=== PATIENT | male | born 1995 | race Caucasian/White ===

== ENCOUNTER 2024-12-08 08:05 | Outpatient (CLI) | payer OTHER, SELFPAY ==
--- OUTSIDE RECORDS SUMMARY | 2024-12-08 08:15 | XMS_ITS | Referral Summary ---
Author Organization [facility] Address [address] [place] [address] Care Team Providers Care Lock Up Worker Name Role Phone Unavailable Primary Care Provider Unavailabl e Social History Tobacco Use Types Packs/Day Years Used Date Smoking Tobacco: Never Assessed Inadequate Housing Answer Date Recorded Social Determinants: Housing (Overall Score Help er) 0 10/15/2023 Sex and Gender Information Value Date Recorded Sex Assigned at Not on file Gender Identity Not on file Sexual Orientation Not on file Plan of Treatment Not on file
--- OUTSIDE RECORDS SUMMARY | 2024-12-08 08:15 | XMS_ITS | Clinical Summary ---
Author Organization [facility] Address [address] [place] [address] Care Team Providers Care Director Of Community Life Name Role Phone Unavailable Primary Care Provider Unavailabl e Social History Tobacco Use Types Packs/Day Years Used Date Smoking Tobacco: Never Assessed Inadequate Housing Answer Date Recorded Social Determinants: Housing (Overall Score Help er) 0 10/15/2023 Sex and Gender Information Value Date Recorded Sex Assigned at Not on file Gender Identity Not on file Sexual Orientation Not on file Plan of Treatment Health Maintenance Due Date Last Done Comments Depression Screening 2007 Varicella Vaccine (1 of 2 - 13+ 2-dose series) 2008 DTaP/Tdap/Td Vaccine (1 - Tdap) 2014 Hepatitis B Vaccine (1 of 3 - 19+ 3-dose series) 2014 Cervical Cancer Screening 2016 Pap Smear 2016 COVID-19 Vaccine (2023-2 5 season) 2024 Influenza Vaccine (#1) 2024 HPV Vaccine Aged Out No longer eligi ble based on patient's age to complete this topic Meningococcal Vaccine Aged Out No fahad kristina eligible based on patient's age to complete this topic Pneumococcal Vaccine 0-49 Aged Out No longer eligible based on patient's age to complete this topic
--- OUTSIDE RECORDS SUMMARY | 2024-12-08 08:15 | XMS_ITS ---
Author Organization [facility] Address [address] [place] [address] Care Team Providers Care Editor Index Name Role Phone Violeta Quiroz Primary Care Provider [phone] Reynaldo Gomez [phone] REASON FOR VISIT New Refill Request Medications Medication SIG (Take, Route, Frequency, Duration) Notes Start Date End Date Status Testosterone Cypionate 200 MG/ML 0.4 ml Intramuscular once every week for 90 days 06/08/2023 Active FLUoxetine HCl 40 MG TAKE 1 CAPSULE BY M OUTH EVERY DAY FOR 90 DAYS for 90 days Active Social History Sex Assigned At : Social History Observation Description Sex Assigned At Female Encounters Encounter Location Date Provider Diagnosis [address] [address] 06/07/2023 Reynaldo Gomez Gender dysphoria F64.9 Assessments Encounter Date Diagnosis (ICD Code) Assessment Notes Treatment Notes Treatment Clinical Notes Section Notes 06/07/2023 Gender dysphoria (ICD-10 - F64.9) Plan Of Treatment Medication Medication Name Sig Start Date Stop Date Notes Testosterone Cypionate 200 MG/ML 0.4 ml Intramuscular once every week for 90 days 06/08/2023 FLUoxetine HCl 40 MG TAKE 1 CAPSULE BY M OUTH EVERY DAY FOR 90 DAYS for 90 days Progress Notes * Doron FAUSTINDOB:[birth year] (27 yo M)Acc No.[id number]:06/07/2023 Patient:?Doron Faustin :1995???Age:27 Y???Sex:Male Address:[address] [place] [phone] * Refills? Refill FLUoxetine HCl Capsule, 40 MG, 90 Capsule, TAKE 1 CAPSULE BY MOUTH EVERY DAY FOR 90 DAYS, 90 days, Refills=0 Refill Testosterone Cypionate Solution, 200 MG/ML, Intramuscular, 6 ml, 0.4 ml, once every week, 90 days, Refills=0 * true * Date:? Generated for Reina momin/Adryan/Sharmilasmitting on:?12/08/2024 08:15 AM AGRICULTURAL COMMODITIES INSPECTOR
--- OUTSIDE RECORDS SUMMARY | 2024-12-08 08:15 | XMS_ITS | Referral Summary ---
Author Organization [facility] Address [address] [place] [address] Care Team Providers Care Mason Foreman/Superintendant Name Role Phone RichieVioleta ANGELICA Primary Care Provider [phone] Allergies Active Allergy Reactions Criticality Noted Date Comments Escitalopram Rash Medium 01/01/2017 Medications needle, disp, 25 gauge (BD REGULAR BEVEL NEEDLES) 25 gauge x 5/8 needle Use to inject testosterone subcutaneously once weekly 4 each 5 9 Active needle, disp, 18 G (BD REGULAR BEVEL NEEDLES) 18 gauge x 1 1/2 needle Use to draw up testosterone injections once weekly 4 each 5 9 Active syringe, disposable, (BD LUER-STACY SYRINGE) 1 mL syringe Use for weekly testosterone injections 4 Syringe 5 9 Active FLUoxetine (PROzac) 40 mg capsule Take 1 capsule (40 mg total) by mouth daily 30 capsule 6 9 Active testosterone cypionate (DEPO-TESTOTER ONE) 200 mg/mL injection INJECT 0.4ML INTO MUSCLE ONCE EVERY WEEK 2 mL 2 0 Active methylPREDNISo lone (MEDROL DOSEPACK) 4 mg Dosepack TAKE 6 TABLETS ON DAY 1 DIRECTED ON PACKAGE AND DECREASE BY 1 TAB EACH DAY FOR A TOTAL OF 6 DAYS 3 Active azithromycin (ZITHROMAX) 250 mg tablet TAKE 2 TABLETS BY MOUTH TODAY, THEN TAKE 1 TABLET DAILY FOR 4 DAYS 3 Active Active Problems Problem Noted Date Diagnosed Date Iuhhou-ce-aobq transgender person 05/13/2019 Class 2 obesity due to exces s calories without serious comorbidity with body mass index (BMI) of 39.0 to 39.9 in adult 05/13/2019 Dyslipidemia 05/13/2019 Vitamin D deficiency 05/13/2019 Social History Tobacco Use Types Packs/Day Years Used Date Smoking Tobacco: Never Smokeless Tobacco: Current Comments:vaping AUDIT-C Answer Date Recorded Frequency of Alcohol Consumption Not on file 11/24/2022 Q2: How many drinks containi ng alcohol do you have on a typical day when you are drinking? Patient does not drink Frequency of Binge Drinking Not on file 11/12 Comments Unknown Sex and Gender Information Value Date Recorded Sex Assigned at Female 05/14/2019 8:58 AM CDT Legal Sex Female 1:28 PM CDT Gender Identity Transgender Male 05/14/2019 8:58 AM CDT Sexual Orientation Not on file Last Filed Vital Signs Vital Sign Reading Time Taken Comments Blood Pressure 122/80 11/24/2022 3:16 PM PHLEBOTOMY TECHNOLOGIST Pulse 90 09/23/2019 1:01 PM PHLEBOTOMY TECHNOLOGIST Temperature 37.1 ??C (98.7 ??F) 09/23/2019 1:01 PM CS T Respiratory Rate 23 09/23/2019 1:01 PM PHLEBOTOMY TECHNOLOGIST Oxygen Saturation - - Inhaled Oxygen Concentration - - Weight 128 kg (282 lb 3.2 oz) 11/24/2022 3:16 PM PHLEBOTOMY TECHNOLOGIST Height 172.7 cm (5' 8 ) 11/24/2022 3:16 PM PHLEBOTOMY TECHNOLOGIST Body Mass Index 42.91 11/24/2022 3:16 PM PHLEBOTOMY TECHNOLOGIST Plan of Treatment Not on file Procedures Procedure Name Priority Date/Time Associated Diagnosis Comments THINPREP IMAGING PAP REFLEX HPV MRNA E6/E7 Routine 11/24/2022 4:45 PM PHLEBOTOMY TECHNOLOGIST from Last 3 Months or Most Recently Relevant to Health Maintenance Results * ThinPrep Imaging Pap Reflex HPV mRNA E6/E7 (11/24/2022 4:45 PM PHLEBOTOMY TECHNOLOGIST) CLINICAL INFORMATION: Routine exam TRANSMAN ON [employer] LMP NONE [facility] [employer] Previous Pap NONE GIVEN [facility] Prev. Bx NONE GIVEN [facility] SOURCE: Cervix, Endocervix [facility] Pap, specimen adequacy Satisfactory for evaluation. Endocervical/borges sformation zone component present. [employer] HPV interp Negative for intraepithelial lesion or malignancy. [facility] COMMENTS This Pap test has been evaluated with computer assisted technology. [facility] Mechanical Maintenance Technician TLS, CT(ASCP) CT Screening Location: [address] [address] [facility] Review business area manager TONEY, CT(ASCP) CT screening location: [place] [address] [address] [place] [id number] [place] [address] Comment [facility] Comment: EXPLANATORY NOTE: The Pap is a screening test for cervical cancer. It is not a diagnostic test and is subject to false negative and false positive results. It is most reliable when a satisfactory sample, regularly obtained, is submitted with relevant clinical findings and history, and when the Pap result is evaluated along with historic and current clinical information. 11/24/2022 4:45 PM PHLEBOTOMY TECHNOLOGIST 11/25/2022 1:25 AM PHLEBOTOMY TECHNOLOGIST Narrative [facility] - 11/28/2022 11:37 AM PHLEBOTOMY TECHNOLOGIST FASTING: UNKNOWN us Neelima Rodriguez MD LAB PATHOLOGY ORDERABLES Final Result [place] [address] [place] [address] from Last 3 Months or Most Recently Relevant to Health Maintenance Insurance [employer] O[employer] Member Subscriber Plan / Payer (Ef fective 2021-Present) Name:Doron Faustin Relation to Subscriber:Self Name:Doron Faustin Payer ID:[id number] (NAIC) Type:ADORE DENNIS Address: [facility] [address] [place] [id number] ANTHEM ACCESS ANTHEM ACCESS Advance Directives For more information, please contact: [phone] Documents on File Type Date Recorded Patient Plant Attendant Expl anation ADVANCE DIRECTIVE 05/13/2019 3:22 PM ADVANCE DIRECTIVE 10/02/2017 Advance Di rective Checklist Care Teams Mason Foreman/Superintendant Relationship Specialty Start Date End Date Violeta Quiroz NP [address] [place] [address] PCP - General Nurse Practitioner 08/29/22
--- OUTSIDE RECORDS SUMMARY | 2024-12-08 08:16 | XMS_ITS | Clinical Summary ---
Author Organization [facility] Address [address] [place] [address] Care Team Providers Care Computer Network And Systems Engineer Name Role Phone Unknown, Provider Primary Care Provider Unavaila ble Source Comments [facility],non-owned Affiliates and Associated Physician Practices is amultiple site organization consisting of ambulatory clinics and hospital sitesin [place], [place], [place] and [place]. This disclosure is being madepursuant to the Care Everywhere program and may not contain all information available regarding this patient. Last updated 18.[facility] Allergies Active Allergy Reactions Criticality Noted Date Comments Escitalopram Rash Medium 01/01/2017 Escitalopram Urticaria Medium 08/06/2018 Medications Be aware that medications may not be up to date on this document. Always verify current medications with the patient. No known medications Active Problems Problem Noted Date Diagnosed Date Gender identity disorder 12/06/2017 Overview (08/12/2022): IMO 2021 Update Family History Medical History Relation Name Comments Diabetes - Type 2 Maternal Grandfather Hypertension Mother Asthma Neg Hx Autoimmune Disease Neg Hx Bipolar Disorder Neg Hx Cancer - Breast Neg Hx Cancer - Colon Neg Hx Cancer - Other Neg Hx Cancer - Ovarian Neg Hx Cancer - Pancreatic Neg Hx Cancer - Prostate Neg Hx Depression Neg Hx Eczema Neg Hx Migraine Neg Hx Osteoporosis Neg Hx Seizures Neg Hx Sudd. <30 Neg Hx Thyroid Disease Neg Hx Ulcerative Colitis Neg Hx Relation Name Status Comments Father Alive Maternal Grandfather Alive Mother Alive Social History Tobacco Use Types Packs/Day Years Used Date Smoking Tobacco: Never Smokeless Tobacco: Never Tobacco Cessation:Counseling Given: No Alcohol Use Standard Drinks/Week Comments No 0 (1 standard drink = 0.6 oz pur e alcohol) Sex and Gender Information Value Date Recorded Sex Assigned at Not on file Gender Identity Gender Non-conforming 08/07/2018 8:01 AM CDT Sexual Orientation Not on file Last Filed Vital Signs Vital Sign Reading Time Taken Comments Blood Pressure 122/78 06/01/2020 12:33 PM CDT Pulse 96 06/01/2020 12:33 PM CDT Temperature 37.1 ??C (98.7 ??F) 06/01/2020 12:33 PM C DT Respiratory Rate 17 06/01/2020 12:33 PM CDT Oxygen Saturation 98% 06/01/2020 12:33 PM CDT Inhaled Oxygen Concentration - - Weight 127 kg (280 lb) 06/01/2020 12:33 PM CDT Height 172.7 cm (5' 8 ) 06/01/2020 12:33 PM CDT Body Mass Index 42.57 06/01/2020 12:33 PM CDT Plan of Treatment Health Maintenance Due Date Last Done Comments HIV SCREENING 2010 HEPATITIS C SCREENING 12/19/2013 DTAP/TDAP/TD VACCINES (1 - Tdap) 2014 HEPATITIS B VACCINE (1 of 3 - 19+ 3-dose series) 2014 COVID-19 VACCINE ( - 2023-2 5 season) 2024 INFLUENZA VACCINE (#1) 2024 DEPRESSION SCREENING 11/12/2024 ZOSTER VACCINE (1 of 2) 2045 HIB VACCINE Aged Out No longer eligi ble based on patient's age to complete this topic HPV VACCINE Aged Out No longer eligi ble based on patient's age to complete this topic MENINGOCOCCAL (Group B) VACCINE Aged Out No longer eligible based on patient's age to complete this topic MENINGOCOCCAL VACCINE Aged Out No fahad kristina eligible based on patient's age to complete this topic PNEUMOCOCCAL VACCINE Aged Out No long er eligible based on patient's age to complete this topic Care Teams Computer Network And Systems Engineer Relationship Specialty Start Date End Date Unknown, Provider PCP - General 12/22/16
--- OUTSIDE RECORDS SUMMARY | 2024-12-08 08:16 | XMS_ITS ---
Author Organization [facility] Address [address] [place] [address] Care Team Providers Care Curriculum Development Manager Name Role Phone Violeta Quiroz Primary Care Provider [phone] PrelutskReynaldo martínez [phone] Social History Sex Assigned At : Social History Observation Description Sex Assigned At Female Encounters Encounter Location Date Provider Diagnosis [address] [address] 06/08/2023 Violeta Quiroz Plan Of Treatment No Information Progress Notes * Doron FAUSTINDOB:[birth year] (27 yo M)Acc No.[id number]:06/08/2023 Patient:?Doron Faustin :1995???Age:27 Y???Sex:Male Address:[address] [place] [address] * true * Date:? Generated for Keveni liliane/Adryan/eTransmitting on:?12/08/2024 08:16 AM METAL BENCH PATTERNMAKER
--- OUTSIDE RECORDS SUMMARY | 2024-12-08 08:16 | XMS_ITS | Patient Health Summary ---
Author Organization [facility] Address [address] [place] [address] Care Team Providers Care Stacker Operator Name Role Phone Unknown, Provider Primary Care Provider Unavaila ble Note from [facility],non-owned Affiliates and Associated Physician Practices is amultiple site organization consisting of ambulatory clinics and hospital sitesin [place], [place], [place] and [place]. This disclosure is being madepursuant to the Care Everywhere program and may not contain all information available regarding this patient. Last updated 18.[facility] Allergies * Escitalopram(Rash) -Medium Criticality * Escitalopram(Urticaria) -Medium Criticality Medications Be aware that medications may not be up to date on this document. Always verify current medications with the patient. No known medications Active Problems Problem Noted Date Diagnosed Date Gender identity disorder 12/06/2017 Social History Tobacco Use Types Packs/Day Years [...] Mass Index 42.57 06/01/2020 12:33 PM CDT Procedures * STREP A SCREEN - POINT OF CARE (AMB) STL(Performed 12/01/2017) Performed for Nasopharyngitis * STREP A SCREEN - POINT OF CARE (AMB) STL(Performed 12/22/2016) Performed for Acute pharyngitis, unspecified etiology, Lymphadenitis, acute Results * STREP A SCREEN (12/01/2017) Only the most recent of2 resultswithin the time period is included. Strep A Rapid POCT Negative Negative Strep A Internal Control Present Lot # [id number] Expiration Date [id number] Throat ENTIRE THROAT (SURFACE REGION OF NECK) / Unknown 12/01/2017 Joan Vega CEMENT MIXER-CUSTOMER SUPPORT ASSISTANT LAB - POINT O F CARE ORDERABLES Care Teams Stacker Operator Relationship Specialty Start Date End Date Unknown, Provider PCP - General 12/22/16
--- OUTSIDE RECORDS SUMMARY | 2024-12-08 08:16 | XMS_ITS ---
Author Organization [facility] Address [address] [place] [address] Care Team Providers Care Ordnance Artificer Helper Name Role Phone Violeta Quiroz Primary Care Provider [phone] PrelutskReynaldo martínez [phone] Social History Sex Assigned At : Social History Observation Description Sex Assigned At Female Encounters Encounter Location Date Provider Diagnosis [address] [address] 07/04/2023 Violeta Quiroz Plan Of Treatment No Information Progress Notes * Doron FAUSTINDOB:[birth year] (28 yo M)Acc No.[id number]:07/04/2023 Progress Notes Patient:?Doron FAUSTIN Provider:?Violeta Quiroz NP :1995???Age:27 Y???Sex:Male Abdulaziz e:07/04/2023 Address:[address] [place], [place] [id number] Subjective: * Chief Complaints: * ??? * Medical History:? * Implants:? Objective: * Vitals:? Assessment: Plan: * Treatment: * Procedure Codes:?D9987 No Ca ll No Show * Billing Information: * Visit Code:? * Procedure Codes:? D9987 No Call No Show. Care Plan Details* * Electronic signature of SARAH Arellano on 12/08/2024 at 08:16 AM HAND TOOL LAPPER Sign off status: Pending * Provider:?Violeta Quiroz NP Date:?07/04/20 Generated for Reina momin/Adryan/Mirtha on:?12/08/2024 08:16 AM HAND TOOL LAPPER
--- OUTSIDE RECORDS SUMMARY | 2024-12-08 08:16 | XMS_ITS | Clinical Summary ---
Author Organization [facility] Address [address] [place] [address] Care Team Providers Care Finisher Brush Name Role Phone RichieVioleta ANGELICA Primary Care Provider [phone] Allergies Active Allergy Reactions Criticality Noted Date [...] Active Problems Problem Noted Date Diagnosed Date Mbezoj-fu-mxiz transgender person 05/13/2019 Class 2 obesity due to exces s calories without serious comorbidity with body mass index (BMI) of 39.0 to 39.9 in adult 05/13/2019 Dyslipidemia 05/13/2019 Vitamin D deficiency 05/13/2019 Surgical History Surgery Date Site/Laterality Comments MASTECTOMY Medical History Medical History Date Comments Gender dysphoria Social History Tobacco Use Types Packs/Day Years [...] AM CDT Sexual Orientation Not on file Obstetrics History Para Term AB IAB SAB Ectopic Multiple Livin g Live Births 0 0 0 0 0 0 0 0 0 0 0 Last Filed Vital Signs Vital Sign Reading Time Taken Comments Blood Pressure 122/80 11/24/2022 3:16 PM THERAPEUTIC ASSISTANT Pulse 90 09/23/2019 1:01 PM THERAPEUTIC ASSISTANT Temperature 37.1 ??C (98.7 ??F) 09/23/2019 1:01 PM CS T Respiratory Rate 23 09/23/2019 1:01 PM THERAPEUTIC ASSISTANT Oxygen Saturation - - Inhaled Oxygen Concentration - - Weight 128 kg (282 lb 3.2 oz) 11/24/2022 3:16 PM THERAPEUTIC ASSISTANT Height 172.7 cm (5' 8 ) 11/24/2022 3:16 PM THERAPEUTIC ASSISTANT Body Mass Index 42.91 11/24/2022 3:16 PM THERAPEUTIC ASSISTANT Plan of Treatment Health Maintenance Due Date Last Done Comments Depression Screening 1995 Hepatitis C Screening 1995 DTaP/Tdap/Td Vaccine (1 - Tdap) 2006 Varicella Vaccines (1 of 2 - 13+ 2-dose series) 2008 Hepatitis B Screening 2013 Regular Well Visit/Exam 18-64 2013 Cervical Cancer Screening 11/24/2023 11/24/2022 Covid-19 Vaccine (2 - 2023-2 5 season) 2024 08/28/2022 Influenza Vaccine (#1) 2024 2, 08/23/2020 HPV Vaccines Aged Out No longer eligi ble based on patient's age to complete this topic Pneumococcal vaccine <65 Aged Out No longer eligible based on patient's age to complete this topic Procedures Procedure Name Priority Date/Time Associated Diagnosis Comments THINPREP IMAGING PAP REFLEX HPV MRNA E6/E7 Routine 11/24/2022 4:45 PM THERAPEUTIC ASSISTANT from Last 3 Months or Most Recently Relevant to Health Maintenance Results * ThinPrep Imaging Pap Reflex HPV mRNA E6/E7 (11/24/2022 4:45 PM THERAPEUTIC ASSISTANT) CLINICAL INFORMATION: Routine exam TRANSMAN ON [facility] LMP NONE [facility] Previous Pap NONE GIVEN [facility] Prev. Bx NONE GIVEN [facility] SOURCE: Cervix, Endocervix [facility] Pap, specimen adequacy Satisfactory for evaluation. Endocervical/borges sformation zone component present. [facility] HPV interp Negative for intraepithelial lesion or malignancy. [facility] COMMENTS This Pap test has been evaluated with computer assisted technology. [facility] Cloth Spreader TLS, CT(ASCP) CT Screening Location: [address] Review stone carver TONEY, CT(ASCP) CT screening location: [address] [place] [address] Comment [facility] Comment: EXPLANATORY NOTE: The Pap is [...] and current clinical information. 11/24/2022 4:45 PM THERAPEUTIC ASSISTANT 11/25/2022 1:25 AM THERAPEUTIC ASSISTANT Narrative [facility] 11/28/2022 11:37 AM THERAPEUTIC ASSISTANT FASTING: UNKNOWN Neelima Rodriguez MD LAB PATHOLOGY ORDERABLES Final Result [place] [address] [place] [address] from Last 3 Months or Most Recently Relevant to Health Maintenance Insurance BLUE ACCESS OOS ANTHEM ACCESS ANTHEM ACCESS Advance Directives For more information, please contact: [phone] Documents on File Type Date Recorded Patient Operator Cavity Pump Expl anation ADVANCE DIRECTIVE 05/13/2019 3:22 PM ADVANCE DIRECTIVE 10/02/2017 Advance Di rective Checklist Care Teams Finisher Brush Relationship Specialty Start Date End Date Violeta Quiroz NP [address] [place] [address] PCP - General Nurse Practitioner 08/29/22
--- OUTSIDE RECORDS SUMMARY | 2024-12-08 08:16 | XMS_ITS | Patient Health Record ---
[facility] Address [address] [place] [id number] Care Team Providers Care Back Roller Name Role Phone MagueVioleta hoover Primary Care Provider PrelutskReynaldo martínez [phone] Allergies Allergen (clinical drug ingredient) Drug/Non Drug Allergy documented on EMR Reaction Allergy Type Onset Date Status escitalopram Escitalopram Oxalate hives Drug Allergy Active Reason For Referral No Information Medications Medication SIG (Take, Route, Frequency, Duration) Notes Start Date End Date Status Needle (Disp) 18G X 1 to draw up injectable medication as directed as directed for 90 days 11/22/2020 Active FLUoxetine HCl 40 MG TAKE 1 CAPSULE BY MOUTH EVERY DAY FOR 90 DAYS for 90 days Ok for one fill of this medication but please let patient know he is overdue for an office visit with us Active Testosterone Cypionate 200 MG/ML 0.4 ml Intramuscular once every week for 90 days 06/08/2023 Active Syringe 23G X 1 3 ml to inject testosterone Injected every week for 90 days 11/22/2020 Active BD Insulin Syringe Ultrafine 29G X 1/2 1 ML as directed Injected once weekly for 90 days 01/04/2022 Active Immunizations Vaccine Route Administration Date Status Comme nts Flulaval IM Intramuscular 08/23/2020 Administered Social History Tobacco Use: Social History Observation Description Date Details (start date - stop date) Former Smoker NA - NA Sex Assigned At : Social History Observation Description Sex Assigned At Female Tobacco Use/Smoking Question Answer Notes Smoking Status: former smoker How long has it been since you last smoked? 1-5 years Alcohol Screen (Audit-C) Question Answer Notes Did you have a drink contain ing alcohol in the past year? Yes How often did you have 6 or more drinks on one occasion in the past year? Less than monthly (1 point) How many drinks did you have on a typical day when you were drinking in the past year? 3 or 4 drinks (1 point) How often did you have a dri nk containing alcohol in the past year? Monthly or less (1 point) Tobacco use other than smoking: Question Answer Notes Are you an other tobacco user? No Problems Problem Type SNOMED Code ICD Code Onset Dates Problem Status W/U Status Risk Notes Problem Generalized anxiety disorder (29767249) Generalized anxiety disorder (F41.1) Active confirmed Problem Gender dysphoria (03609558) Gender dysphoria (F64.9) Active confirmed Problem Depression (167639780) Depression (F32.9) Active confirmed Plan Of Treatment No Information Insurance Providers Payer Name Payer Address Payer Phone Subscriber Number Group Number Insured Name Patient Relationship to Insured Coverage Start Date Coverage End Date [facility] [address] [place] [address] [id number] Doron Gimenez Self - patient is the insured Medical (General) History Medical History History ICD Code Colonoscopy: No DEXA (Bone Density) Scan: No Mammogram: No Pap: This year AIDS/HIV: No alcohol abuse: No acid reflux: No allergies, food: No allergies, seasonal: Yes anemia: No arthritis: No asthma: No attention deficit disorder: No anxiety: Yes bipolar disorder: No bladder infections, chronic: No : No chronic diarrhea: No cough, chronic: No dementia: No depression: Yes deep vein thrombosis: No diabetes mellitus: No drug abuse: No eating disorder: No gout: No insomnia: No inflammatory bowel disease: No myocardial infarction: No neuropathy: No panic attacks: No osteoporosis: No pulmonary embolism: No rheumatoid arthritis: No seizures: No sleep apnea: No stroke: No white coat hypertension: No Surgical History Surgery Date(Month/Year) bilateral mastectomy 2017
--- OUTSIDE RECORDS SUMMARY | 2024-12-08 08:16 | XMS_ITS | Referral Summary ---
Author Organization [facility] Address [address] [place] [address] Care Team Providers Care Hydrotechnical Specialist Name Role Phone Unknown, Provider Primary Care Provider Unavaila ble Source Comments [facility],non-owned Affiliates and Associated Physician Practices is amultiple site organization consisting of ambulatory clinics and hospital sitesin [place], [place], [place] and [place]. This disclosure is being madepursuant to the Care Everywhere program and may not contain all information available regarding this patient. Last updated 18.[facility] [employer] Allergies Active Allergy Reactions Criticality Noted Date Comments Escitalopram Rash Medium 01/01/2017 Escitalopram Urticaria Medium 08/06/2018 Medications Be aware that medications may not be up to date on this document. Always verify current medications with the patient. No known medications Active Problems Problem Noted Date Diagnosed Date Gender identity disorder 12/06/2017 Overview (08/12/2022): IMO 2021 Update Social History Tobacco Use Types Packs/Day Years [...] 06/01/2020 12:33 PM CDT Plan of Treatment Not on file Care Teams Hydrotechnical Specialist Relationship Specialty Start Date End Date Unknown, Provider PCP - General 12/22/16
[2024-12-08 16:28] LABS: Basophils Absolute Auto 0.1 K/mm3 (0.0-0.1); Basophils Percent Auto 0.6 % (0.2-1.2); Eosinophils Absolute Auto 0.1 K/mm3 (0-0.3); Eosinophils Percent Auto 1.1 % (0-4.4); Hemoglobin 14.3 g/dL (14.0-18.0); Immature Granulocyte Absolute 0.04 K/mm3 (0.00-0.031); Immature Granulocyte Percent A 0.4 % (0-0.5); Lymphocytes Absolute Auto 3.46 K/mm3 (0.9-3.2); Lymphocytes Percent Auto 35.4 % (18.3-44.2); Mean Corpuscular HGB Conc 30.4 g/dl (32-36); Mean Corpuscular Hemoglobin 25.2 pg (26-34); Mean Corpuscular Volume 82.9 fl (80-100); Mean Platelet Volume 8.7 fl (7.4-10.4); Monocytes Absolute Auto 0.5 K/mm3 (0.1-0.6); Monocytes Percent Auto 5.5 % (2.6-8.5); Neutrophils Absolute Auto 5.6 K/mm3 (1.3-6.7); Platelet Count Result 383 k/mm3 (150-375); Red Blood Count 5.67 M/mm3 (4.6-6.20); Red Cell Distribution Width 14.1 % (11.5-14.5); White Blood Count 9.8 K/mm3 (4.5-10.0)
[2024-12-08 17:13] LABS: Hemoglobin A1C 5.8 % (<5.7)
[2024-12-08 18:14] LABS: Free T4 Free Thyroxine 0.99 ng/dL (0.78-2.19)
[2024-12-08 18:32] LABS: Vitamin D 25 Hydroxy < 12.8 ng/mL
[2024-12-13 23:19] LABS: Testosterone Free 85.1 pg/mL (35.0-155.0); Testosterone Total 452 ng/dL (250-1100)
== END 2024-12-08 08:06 | disposition home or self-care (01) ==
LOC: ANHGOSHLAB 08:07
PROVIDERS: PCP Family Medicine; Visit Provider Family Medicine
DX: R73.9 Hyperglycemia, unspecified (principal); R53.83 Other fatigue; E55.9 Vitamin D deficiency, unspecified; Z78.9 Other specified health status
CPT/HCPCS: 36415; 82306; 83036; 84402; 84403; 84439; 84443; 85025

== ENCOUNTER 2025-01-22 07:58 | Outpatient (CLI) | payer OTHER, SELFPAY ==
--- OUTSIDE RECORDS SUMMARY | 2025-01-22 08:06 | XMS_ITS | Referral Summary ---
Author Organization [facility] Address [address] [place] [phone] Care Team Providers Care Executive Compensation Analyst Name Role Phone RichieVioleta ANGELICA Primary Care Provider [phone] Allergies Active Allergy Reactions Criticality Noted Date [...] Active Problems Problem Noted Date Diagnosed Date Nsbucb-eb-vzix transgender person 05/13/2019 Class 2 obesity due [...] Comments Blood Pressure 122/80 11/24/2022 3:16 PM HISTORICAL INTERPRETER Pulse 90 09/23/2019 1:01 PM HISTORICAL INTERPRETER Temperature 37.1 C (98.7 F) 09/23/2019 1:01 PM HISTORICAL INTERPRETER Respiratory Rate 23 09/23/2019 1:01 PM HISTORICAL INTERPRETER Oxygen Saturation - - Inhaled Oxygen Concentration - - Weight 128 kg (282 lb 3.2 oz) 11/24/2022 3:16 PM HISTORICAL INTERPRETER Height 172.7 cm (5' 8 ) 11/24/2022 3:16 PM HISTORICAL INTERPRETER Body Mass Index 42.91 11/24/2022 3:16 PM HISTORICAL INTERPRETER Plan of Treatment Not on file Procedures Procedure Name Priority Date/Time Associated Diagnosis Comments THINPREP IMAGING PAP REFLEX HPV MRNA E6/E7 Routine 11/24/2022 4:45 PM HISTORICAL INTERPRETER from Last 3 Months or Most Recently Relevant to Health Maintenance Results * ThinPrep Imaging Pap Reflex HPV mRNA E6/E7 (11/24/2022 4:45 PM HISTORICAL INTERPRETER) CLINICAL INFORMATION: Routine exam TRANSMAN ON [facility] LMP NONE [facility] Prev. Bx NONE GIVEN [facility] SOURCE: Cervix, Endocervix [facility] Pap, specimen adequacy Satisfactory for evaluation. Endocervical/borges sformation zone component present. [facility] HPV interp Negative for intraepithelial lesion or malignancy. [facility] COMMENTS This Pap test has been evaluated with computer assisted technology. [facility] Ceramics Technician TLS, CT(ASCP) CT Screening Location: [place] [address] [address] [facility] [address] [facility] Review stone polisher hand TONEY, CT(ASCP) CT screening location: [place] [address] Comment [facility] Comment: EXPLANATORY NOTE: The Pap is [...] and current clinical information. 11/24/2022 4:45 PM HISTORICAL INTERPRETER 11/25/2022 1:25 AM HISTORICAL INTERPRETER Narrative [facility] - 11/28/2022 11:37 AM HISTORICAL INTERPRETER FASTING: UNKNOWN us Neelima Rodriguez MD LAB PATHOLOGY ORDERABLES Final Result [place] [address] [place] [address] from Last 3 Months or Most Recently Relevant to Health Maintenance Insurance [employer] OOS Member Subscriber Plan / Payer (Ef fective 2021-Present) Name:Doron Faustin Relation to Subscriber:Self Name:Doron Faustin Payer ID:[id number] (NAIC) Type:ADORE DENNIS Address: [facility] [id number] [place] [id number] ANTHEM ACCESS ANTHEM ACCESS Advance Directives For more information, please contact: [phone] Documents on File Type Date Recorded Patient Deputy Commissioner Expl anation ADVANCE DIRECTIVE 05/13/2019 3:22 PM ADVANCE DIRECTIVE 10/02/2017 Advance Di rective Checklist Care Teams Executive Compensation Analyst Relationship Specialty Start Date End Date Violeta Quiroz NP [address] [place] [address] PCP - General Nurse Practitioner 08/29/22
--- OUTSIDE RECORDS SUMMARY | 2025-01-22 08:07 | XMS_ITS | Patient Health Summary ---
Author Organization [facility] Address [address] [place] [address] Care Team Providers Care Lay Up Operator Name Role Phone Unknown, Provider Primary Care Provider Unavaila ble Note from [facility],non-owned Affiliates and Associated Physician Practices is amultiple site organization consisting of ambulatory clinics and hospital sitesin [place], [place], [place] and [place]. This disclosure is being madepursuant to the Care Everywhere program and may not contain all information available regarding this patient. Last updated 18.[facility] Access Allergies * Escitalopram(Rash) -Medium Criticality * Escitalopram(Urticaria) [...] 96 06/01/2020 12:33 PM CDT Temperature 37.1 C (98.7 F) 06/01/2020 12:33 PM CDT Respiratory Rate 17 06/01/2020 12:33 PM CDT [...] Strep A Internal Control Present Lot # [id number] Expiration Date [id number] Throat ENTIRE THROAT (SURFACE REGION OF NECK) / Unknown 12/01/2017 Joan Vega SOCIETY EDITOR-POKER SUPERVISOR LAB - POINT O F CARE ORDERABLES Care Teams Lay Up Operator Relationship Specialty Start Date End Date Unknown, Provider PCP - General 12/22/16
--- OUTSIDE RECORDS SUMMARY | 2025-01-22 08:07 | XMS_ITS | Referral Summary ---
Author Organization [facility] Address [address] [place] [address] Care Team Providers Care Marine Firer Name Role Phone Unknown, Provider Primary Care Provider Unavaila ble Source Comments [facility],non-owned Affiliates and Associated Physician Practices is amultiple site organization consisting of ambulatory clinics and hospital sitesin [place], [place], [place] and [place]. This disclosure is being madepursuant to the Care Everywhere program and may not contain all information available regarding this patient. Last updated 18.[facility] Allergies Active Allergy Reactions Criticality Noted Date [...] of Treatment Not on file Care Teams Marine Firer Relationship Specialty Start Date End Date Unknown, Provider PCP - General 12/22/16
--- OUTSIDE RECORDS SUMMARY | 2025-01-22 08:07 | XMS_ITS | Clinical Summary ---
Author Organization [facility] Address [address] [place] [address] Care Team Providers Care Carbon Brusher Assembler Name Role Phone Unknown, Provider Primary Care Provider Unavaila ble Source Comments [facility],non-owned Affiliates and Associated Physician Practices is amultiple site organization consisting of ambulatory clinics and hospital sitesin [place], [place], [place] and [place]. This disclosure is being madepursuant to the Care Everywhere program and may not contain all information available regarding this patient. Last updated 18.[facility] Allergies Active Allergy Reactions Criticality Noted Date [...] to complete this topic MENINGOCOCCAL (Group B) VACC INE SHARED DECISION-MAKING Aged Out No longer eligibl e based on patient's age to complete this topic MENINGOCOCCAL GROUPS A/C/Y/W VACCINE Aged Out No longer eligible b ased on patient's age to complete this topic PNEUMOCOCCAL VACCINE Aged Out No long er eligible based on patient's age to complete this topic Care Teams Carbon Brusher Assembler Relationship Specialty Start Date End Date Unknown, Provider PCP - General 12/22/16
--- OUTSIDE RECORDS SUMMARY | 2025-01-22 08:07 | XMS_ITS | Clinical Summary ---
Author Organization [facility] Address [address] [place] [phone] Care Team Providers Care Internet Marketing Specialist Name Role Phone RichieVioleta ANGELICA Primary Care Provider [phone] Allergies Active Allergy Reactions Criticality Noted Date [...] Active Problems Problem Noted Date Diagnosed Date Bvlouq-ol-gzao transgender person 05/13/2019 Class 2 obesity due [...] Comments Blood Pressure 122/80 11/24/2022 3:16 PM COIL CUTTER Pulse 90 09/23/2019 1:01 PM COIL CUTTER Temperature 37.1 C (98.7 F) 09/23/2019 1:01 PM COIL CUTTER Respiratory Rate 23 09/23/2019 1:01 PM COIL CUTTER Oxygen Saturation - - Inhaled Oxygen Concentration - - Weight 128 kg (282 lb 3.2 oz) 11/24/2022 3:16 PM COIL CUTTER Height 172.7 cm (5' 8 ) 11/24/2022 3:16 PM COIL CUTTER Body Mass Index 42.91 11/24/2022 3:16 PM COIL CUTTER Plan of Treatment Health Maintenance Due Date [...] HPV MRNA E6/E7 Routine 11/24/2022 4:45 PM COIL CUTTER from Last 3 Months or Most Recently Relevant to Health Maintenance Results * ThinPrep Imaging Pap Reflex HPV mRNA E6/E7 (11/24/2022 4:45 PM COIL CUTTER) CLINICAL INFORMATION: Routine exam TRANSMAN ON [facility] [employer] [facility] LMP NONE [facility] [employer] [facility] Previous Pap NONE GIVEN [facility] [employer] [facility] Prev. Bx NONE GIVEN [facility] [employer] [facility] SOURCE: Cervix, Endocervix [facility] Pap, specimen adequacy Satisfactory for evaluation. Endocervical/borges sformation zone component present. [facility] [employer] [facility] HPV interp Negative for intraepithelial lesion or malignancy. [facility] [employer] [facility] COMMENTS This Pap test has been evaluated with computer assisted technology. [facility] Pet Sitting [facility], CT(ASCP) CT Screening Location: [address] Review refinery operator [place], CT(ASCP) CT screening location: [address] [place] [address] Comment [facility] Comment: EXPLANATORY NOTE: The Pap is [...] and current clinical information. 11/24/2022 4:45 PM COIL CUTTER 11/25/2022 1:25 AM COIL CUTTER Narrative [facility] - 11/28/2022 11:37 AM COIL CUTTER FASTING: UNKNOWN Neelima Rodriguez MD LAB PATHOLOGY ORDERABLES Final Result [place] [address] [place] [address] from Last 3 Months or Most Recently Relevant to Health Maintenance Insurance BLUE ACCESS OOS ANTHEM ACCESS ANTHEM ACCESS Advance Directives For more information, please contact: [phone] Documents on File Type Date Recorded Patient Terrazzo Finisher Helper Expl anation ADVANCE DIRECTIVE 05/13/2019 3:22 PM ADVANCE DIRECTIVE 10/02/2017 Advance Di rective Checklist Care Teams Internet Marketing Specialist Relationship Specialty Start Date End Date Violeta Quiroz NP [address] [place] [address] PCP - General Nurse Practitioner 08/29/22
[2025-02-18 20:48] VITALS: BMI 47.7
--- NOTE | 2025-02-18 20:48 | WPDSLEEPSTUD ---
Sleep Study Date of Study: 01/22/25 Ordering Provider: Makeda Singer DO Interpreting Physician: Frida Ramey MD Sleep Study Type: CPAP Titration Height: 1.7 m Weight: 138.346 kg Body Mass Index: 47.7 Neck Circumference (inches): 18 [place]: 12 Reason for Sleep Study Daytime hypersomnia * 11/25/2024 Home sleep test using WatchPat; AHI of 24.7 using 4% criteria and 39.6 using 3% criteria. Per AASM guidelines, this is consistent with severe sleep apnea. He presents for a CPAP titration. Sleep History Doron Gimenez had a home sleep test showing elevated apnea hypopnea index. He returns for a CPAP titration. The sleep questionnaire responses are from his 11/25/2024 study. He is a 28-year-old male with loud snoring, excessive daytime sleepiness, interruptions in breathing while asleep, trouble falling asleep and trouble staying asleep. The patient chokes or gasps at night. He does have trouble breathing on his back. He denies morning headaches. He does have a dry or sore mouth/ throat in the morning. He does have nocturnal heartburn. He urinates twice throughout the night. He does have difficulty returning to sleep if he wakes up throughout the night. He denies any hypnotic or sedative use. He denies feeling anxious about sleep. He does feel tired or sleepy during the day. He feels tired in the morning. He does have the urge to fall asleep during the day. He denies feeling drowsy while driving. He denies sleep paralysis, cataplexy and hypnagogic / hypnopompic hallucinations. He does clench or grind his teeth. He denies kicking or jerking his legs excessively. He denies having a restless feeling in his legs. He goes to bed at 8:30 p.m. on work days and at 1:00 a.m. on his days off. It takes him 2 hours to fall asleep. He gets 6 hours of sleep on his work days and 10 hours of sleep on his days off. His sleep is not restorative on his days off. He denies taking any planned naps. He denies dream enactment behavior. He denies sleep walking. He consumes 1-2 cups of caffeinated beverage per day. He denies tobacco and alcohol use. He denies exercising on a regular basis. [facility] Surgical History Surgical History H/O mastectomy total mastectomy 2017 Family History Family History Grandparent Diabetes mellitus Social History Social History Smoking status: Current some day smoker Tobacco type: cigarettes Alcohol intake: current Alcohol use details: maybe once a month Substance use: current Substance use type: marijuana Do You Feel Safe in your Home?: Yes Lack of Transportation: No Lack of Food: Never True Current Housing: I Have Housing Concerned About Future Housing: No Difficulty Paying Gas/Electric Bills: No Difficulty Paying for Meds: No Currently Unemployed: No Education: High School Diploma/GED Difficulty w/ Childcare or Family Care: No Living arrangements: with family Occupation/Education: occupation Gender identity (if verbalized by the patient): Male Agree to blood products: Yes Medications Home Medications ?Medication ?Instructions ?Recorded ?Confirmed ?Type sertraline 50 mg tablet See Rx Instructions .Route 11/24/24 12/04/24 Rx .COMPLEX #90 tabs ergocalciferol (vitamin D2) 1,250 1,250 mcg PO WEEKLY #13 caps 12/17/24 Rx mcg (50,000 unit) capsule (Vitamin D2) eszopiclone 3 mg tablet (Lunesta) 3 mg PO QHS #1 tablet 12/17/24 Rx testosterone enanthate 100 mg/0.5 100 mg (0.5 mL) subcut WEEKLY #2 mL 02/05/25 Rx mL subcutaneous auto-injector (Xyosted) Sleep Procedure A full night polysomnogram using the [email or web address] multi-channel system recorded the standard physiologic parameters including EEG, EOG, submentalis EMG, anterior tibialis EMG, EKG, body position, nasal and oral airflow using PAP device flow signal. Respiratory parameters of chest and abdominal movements were recorded with Respiratory Inductance Plethysmography belts. Oxygen saturation was recorded by pulse oximetry. Video monitoring was also performed. Sleep stages, periodic limb movements, and EEG arousals were scored in 30 second epochs according to the criteria of the AASM Scoring Manual. The Apnea-Hypopnea Index was calculated using CMS guidelines for definition of hypopnea with 4% O2 desaturations while scoring respiratory events. The patient self-administered Lunesta 2 mg at the beginning of the study. The patient used a medium ResMed AirFit F20 fullface mask with heated humidity, initial pressure was CPAP 5, titrated 3 CPAP 7, 9, 11, 12, final pressure was 13. At CPAP 13, patient spent 298 minutes in bed, 21 minutes awake, 181 minutes in non-REM and 96 minutes in REM. Sleep efficiency was 93%. The residual apnea-hypopnea index was 0.6. The lowest saturation was 90%. This is the optimal pressure. He had REM in the right lateral position. Sleep Architecture The total recording time was 531.2 minutes. The total sleep time was 488.5 minutes. Sleep latency was 19.0 minutes. REM latency was 114.5 minutes. Sleep efficiency was 92.0%. The patient had 20 awakenings for an awakening index of 2.5. Wake after Sleep Onset time was 24.0 minutes. The patient spent 19.5 minutes, 4.0% of total sleep time in Stage N1. The patient spent 233.0 minutes, 47.7% in Stage N2. The patient spent 112.5 minutes, 23.0% in Stage N3. The patient spent 123.5 minutes, 25.3% in Stage REM. Respiratory Analysis The patient had 32 hypopneas, no obstructive apneas, no mixed apneas, and 1 central apnea for an overall Apnea Hypopnea Index of 4.1 events per hour. The REM Apnea Hypopnea Index was 1.0. The NREM Apnea Hypopnea Index was 5.1. The patient had a Central Apnea Hypopnea Index of 0.1. There were no Respiratory Effort Related Arousals.The Respiratory Disturbance Index is 6.4 events per hour. There was no evidence of Cheikh-Rudolph Respirations. Arousals There were 87 total arousals for an arousal index of 10.7. There were 61 spontaneous arousals for an index of 7.5. There were 10 arousals due to respiratory events for an index of 1.2. There were 2 arousals due to periodic limb movements for an index of 0.2. There were 15 arousals due to isolated limb movements for an index of 1.8. Periodic Limb Movements Te patient had 44 isolated limb movements with an index of 5.4. The patient had 54 periodic limb movements with index of 6.6. Patient had a total of 98 limb movements with a total limb movement index of 12.0. Oximetry Data The patient had an average oxygen saturation of 95.2% in sleep with a minimum oxygen saturation of 87% and a maximum oxygen saturation of 98%. The patient had 39 oxygen desaturations that were 4% or greater resulting in an Oxygen Desaturation Index of 4.8. The patient spent 0.3 minutes, 0.1% of the night with an oxygen saturation below 88%. Snoring Profile Snoring was mild, eliminated at the optimal pressure. Cardiac Profile The EKG showed normal sinus rhythm. The patient had an average pulse rate of 74.4 bpm with a minimum pulse rate of 60 bpm and a maximum pulse rate of 102 bpm. No arrhythmias noted. EEG Profile EEG was unremarkable, no evidence of seizures. Assessment and Plan Assessment and Plan (1) ADALBERTO (obstructive sleep apnea): Code(s): G47.33 - Obstructive sleep apnea (adult) (pediatric) Status: Acute Assessment and Plan: This full night CPAP titration on January 22, 2025 shows an optimal pressure of CPAP 13 cm using a medium ResMed AirFit F20 fullface mask and heated humidity. At CPAP 13, patient spent 298 minutes in bed, 21 minutes awake, 181 minutes in non-REM and 96 minutes in REM. Sleep efficiency was 93%. The residual apnea-hypopnea index was 0.6. The lowest saturation was 90%. This is the optimal pressure. The patient should be prescribed this ResMed equipment as well as tubing, filters and reservoir. This should be used with all episodes of sleep. Compliance should be reviewed within 31-90 days of starting therapy for usage greater than 4 hours per night greater than 70% of the nights. The patient should be asked about symptoms such as excessive daytime sleepiness, quality of sleep, decreased nocturia, increased mental functioning such as memory, mood, and concentration. BMI is 47. Weight management is advised. Clinical data suggests that weight loss of 10% can reduce the severity of respiratory events and snoring and improve AHI by as much as 25%. The patient answered sleep questionnaire that he does clench and grind his teeth at night. Bruxism was not noted on this study. Bruxism can be seen with untreated obstructive sleep apnea. This may be expected to improve with compliance with CPAP. He should be asked about jaw discomfort on his follow-up compliance visit. Data The data obtained during this sleep study is adequate for interpretation. Certification This sleep study has been reviewed by a board certified sleep medicine physician.
== END 2025-01-23 06:45 | disposition home or self-care (01) ==
LOC: ANHCSM 07:59
PROVIDERS: PCP Family Medicine; Visit Provider Family Medicine
DX: G47.33 Obstructive sleep apnea (adult) (pediatric) (principal)
CPT/HCPCS: 95811